=== PATIENT | male | born 1995 | race Caucasian/White ===

== ENCOUNTER 2018-07-28 10:47 | Emergency (ER) | payer OTHER ==
[2018-07-28] MEDS ORDERED: Acetaminophen/HYDROcodone 325-5 MG Tab PO ONE (11:25)
--- NOTE | 2018-07-28 11:31 | EDM.PDOC ---
ED HPI GENERAL MEDICAL PROBLEM - General Chief Complaint: Back Pain or Injury Stated Complaint: BACK PAIN Time Seen by Provider: 07/28/18 11:03 Source of Information: Reports: Patient, RN Notes Reviewed - History of Present Illness INITIAL COMMENTS - FREE TEXT/NARRATIVE: 23 year male with onset of severe low back pain yesterday morning. No specific injury but does do a lot of heavy lifting at work and a lot of repetitive lifting, bending, loading, unloading stuff at work every day. The pain is L low back, does not radiate, worse with motion, better to lie still. Left Lower Back Pain Score (Numeric/FACES): 8 - Related Data Allergies Allergy/AdvReac Type Severity Reaction Status Date / Time sulfamethoxazole Allergy Hives Verified 07/28/18 10:59 [From Bactrim] trimethoprim [From Bactrim] Allergy Hives Verified 07/28/18 10:59 Home Meds: Home Meds Naproxen [Naprosyn] 500 mg PO Q12HR #14 tab 07/28/18 [Rx] traMADol [Ultram] 50 mg PO Q6H PRN #14 tab 07/28/18 [Rx] Past Medical History - Past Health History Medical/Surgical History: Denies Medical/Surgical History Social & Family History - Tobacco Use Smoking Status *Q: Current Every Day Smoker Years of Tobacco use: 3 Packs/Tins Daily: 0.5 - Caffeine Use Caffeine Use: Reports: Coffee, Energy Drinks, Soda, Tea - Recreational Drug Use Recreational Drug Use: No ED ROS GENERAL - Review of Systems Review Of Systems: See Below Constitutional: Denies: Fever, Chills, Diaphoresis HEENT: Reports: No Symptoms Respiratory: Denies: Shortness of Breath Cardiovascular: Denies: Chest Pain GI/Abdominal: Denies: Abdominal Pain, Nausea, Vomiting : Reports: No Symptoms Musculoskeletal: Reports: Back Pain. Denies: Leg Pain Skin: Reports: No Symptoms Neurological: Reports: No Symptoms. Denies: Numbness, Tingling ED EXAM,LOWER BACK PAIN/INJURY - Physical Exam Exam: See Below General Appearance: Alert, Mild Distress (at rest, much worse with motion) Eye Exam: Bilateral Eye: PERRL Throat/Mouth: Normal Inspection Head: Atraumatic Neck: Supple Respiratory/Chest: No Respiratory Distress, Lungs Clear, Normal Breath Sounds Cardiovascular: Regular Rate, Rhythm Back Exam: Paraspinal Tenderness (L low back), Other (markedly increased pain with motion). No: CVA Tenderness (L), CVA Tenderness (R), Vertebral Tenderness Extremities: Normal Range of Motion Neurological: Alert, No Motor/Sensory Deficits Course - Vital Signs Last Recorded V/S: Last Vital Signs Temp 97.7 F 07/28/18 11:01 Pulse 79 07/28/18 11:01 Resp 20 07/28/18 11:01 BP 128/69 07/28/18 11:01 Pulse Ox 100 07/28/18 11:01 - Orders/Labs/Meds Meds: Medications Discontinued Medications Generic Name Dose Route Start Last Admin Trade Name Freq PRN Reason Stop Dose Admin Hydrocodone Bitart/Acetaminophen 1 tab 07/28/18 11:25 07/28/18 11:42 [place] 325-5 Mg PO 07/28/18 11:26 1 tab ONETIME ONE Administration Departure - Departure Time of Disposition: 11:26 Disposition: Home, Self-Care 01 Condition: Fair Clinical Impression: Low back strain Qualifiers: Encounter type: initial encounter Qualified Code(s): S39.012A - Strain of muscle, fascia and tendon of lower back, initial encounter - Discharge Information Prescriptions: Naproxen [Naprosyn] 500 mg PO Q12HR #14 tab traMADol [Ultram] 50 mg PO Q6H PRN #14 tab PRN Reason: Pain Instructions: Back Pain, Adult Referrals: PCP,None [Primary Care Provider] - Forms: ED Department Discharge, ED Return to Work/School Form Additional Instructions: rest back, no heavy lifting, naprosyn 500 mg twice daily, tylenol 1000 mg 3 times daily, you may take tramadol in addition for severe pain q 6 to 8 hr as needed. Ice packs alternating with heat will also be helpful. Follow up clinic if not much better within 5 to 7 days as expected.
== END 2018-07-28 11:45 | disposition home or self-care (01) ==
LOC: JD.ED 10:47
DX: S39.012A Strain of muscle, fascia and tendon of lower back, initial encounter (principal); F17.210 Nicotine dependence, cigarettes, uncomplicated; X50.0XXA Overexertion from strenuous movement or load, initial encounter; Z88.2 Allergy status to sulfonamides
CPT/HCPCS: 99283; A9270